=== PATIENT | male | born 2000 | race Caucasian/White ===

== ENCOUNTER 2025-02-25 22:46 | Emergency (ER) | payer OTHER, SELFPAY ==
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
[2025-02-25] MEDS: ATIVAN 2 MG IM (22:52)
[2025-02-25] MEDS: HALDOL 10 MG IM (22:52)
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
[2025-02-25 23:14] VITALS: BP 119/91; BMI 21.4
--- NOTE | 2025-02-25 23:34 | EDRN ---
patient biting on restraints and used teeth to rip his pants off, restraints repositioned, 1:[address] at this time, will continue to monitor
--- NOTE | 2025-02-26 01:00 | EDRN ---
Patient frequently throwing up and banging hand restraints on side rails, will continue to monitor for safety, assure restraints are on properly and re-assess for the need of restraints, 1:[address]
--- NOTE | 2025-02-26 02:17 | EDRN ---
Patient has been resting for a little bit will trial taking 2 restraints off, security at bedside while taking restraints off, patient rotated to his right hand side, asked him if he wanted a blanket and he said yes.
--- NOTE | 2025-02-26 04:21 | EDRN ---
Patient has been sleeping and calm, last 2 restraints removed at this time, 1:1 maintained and security is there, will monitor for need for restraints, at this time they are removed
[2025-02-26 08:00] VITALS: BP 126/87
[2025-02-26 15:58] VITALS: BP 102/70
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
[2025-02-26 19:31] VITALS: BP 110/70
[2025-02-26 23:49] VITALS: BMI 21.4
[2025-02-27 01:30] LABS: Amphetamines Negative (Negative); Barbiturates Negative (Negative); Benzodiazepines Positive (Negative); Buprenorphine Negative (Negative); Cocaine Negative (Negative); Marijuana Positive (Negative); Methadone Negative (Negative); Methamphetamines Negative (Negative); Opiates Negative (Negative); Phencyclidine Negative (Negative); Tricyclic Antidepressants Negative (Negative)
[2025-02-27 01:39] LABS: Fentanyl, Urine Negative (Negative)
[2025-02-27 10:08] VITALS: BP 127/80
== END 2025-02-27 10:20 ==
LOC: EMR 22:46
PROVIDERS: Emergency Medicine; EMERGENCY PHYSICIAN Student in an Organized Health Care Education/Training Program
DX: F25.0 Schizoaffective disorder, bipolar type (principal); R45.850 Homicidal ideations; R45.851 Suicidal ideations; Z78.1 Physical restraint status
CPT/HCPCS: 99285; 96372; 80306; 80307